=== PATIENT | male | born 1960 | race Caucasian/White ===

== ENCOUNTER 2018-08-02 21:24 | Emergency (ER) | payer BC ==
[2018-08-02 21:45] VITALS: TEMP 97.3; BMI 28.2
--- NOTE | 2018-08-02 21:54 | ED PDOC ---
Arrival/HPI - General Chief Complaint: Dizziness/Lightheaded Time Seen by Provider: 08/02/18 21:35 Historian: Patient - History of Present Illness Narrative History of Present Illness (Text): 08/02/18 21:35 58 year old male, whose past medical history includes hyperlipidemia(not on any medication), presents to the emergency department complaining of abrupt onset of dizziness and lightheadedness at home. Patient reports some palpitations. States his noted he was slurring his speech lightly, but denies any focal weakness. Patient states he is feeling better at present time, but still occasionally lightheaded. Patient denies any fever, chills, chest pain, shortness of breath, nausea, vomiting, diarrhea, urinary symptoms, back pain, neck pain, headache, or any other complaints. Symptom Onset: Sudden Symptom Course: Improving Activities at Onset: Light Context: Home Past Medical History - Provider Review Nursing Documentation Reviewed: Yes - Cardiac Hx Cardiac Disorders: Yes - Psychiatric Hx Substance Use: No Family/Social History - Physician Review Nursing Documentation Reviewed: Yes Family/Social History: No Known Family HX Smoking Status: Never Smoked Hx Alcohol Use: No Hx Substance Use: No Allergies/Home Meds Allergies/Adverse Reactions: Allergies pollen extracts Allergy (Verified 08/02/18 21:33) ANAPHYLAXIS Home Medications: Home Meds Medication Instructions Recorded Confirmed No Known Home Med 08/02/18 08/02/18 Review of Systems - Physician Review All systems were reviewed & negative as marked: Yes - Review of Systems Constitutional: absent: Fevers, Other (Chills) Respiratory: absent: SOB Cardiovascular: Palpitations. absent: Chest Pain Gastrointestinal: absent: Diarrhea, Nausea, Vomiting Genitourinary Male: absent: Dysuria, Frequency, Hematuria Musculoskeletal: absent: Back Pain, Neck Pain Neurological: Dizziness, Speech Changes. absent: Headache, Focal Weakness Physical Exam Vital Signs Reviewed: Yes Vital Signs Temp Pulse Resp BP Pulse Ox 08/02/18 21:39 97.3 F L 118 H 18 129/56 L 95 Temperature: Afebrile Blood Pressure: Hypotensive Pulse: Tachycardic Respiratory Rate: Normal Appearance: Positive for: Well-Appearing, Non-Toxic, Comfortable Pain Distress: None Mental Status: Positive for: Alert and Oriented X 3 Finger Stick Blood Glucose: 184 - Systems Exam Head: Present: Atraumatic, Normocephalic Pupils: Present: PERRL Extroacular Muscles: Present: EOMI Conjunctiva: Present: Normal Mouth: Present: Moist Mucous Membranes Neck: Present: Normal Range of Motion Respiratory/Chest: Present: Clear to Auscultation, Good Air Exchange. No: Respiratory Distress, Accessory Muscle Use Cardiovascular: Present: Regular Rate and Rhythm, Normal S1, S2. No: Murmurs Abdomen: No: Tenderness, Distention, Peritoneal Signs Back: Present: Normal Inspection Upper Extremity: Present: Normal Inspection. No: Cyanosis, Edema Lower Extremity: Present: Normal Inspection. No: Edema Neurological: Present: GCS=15, CN II-XII Intact, Speech Normal Skin: Present: Warm, Dry, Normal Color. No: Rashes Psychiatric: Present: Alert, Oriented x 3, Normal Insight, Normal Concentration Medical Decision Making ED Course and Treatment: 08/02/18 21:35 Impression: 58 year old male presents complaining of abrupt onset of dizziness of dizziness/lightheadedness and noted slight slurred speech at home. Plan: -- Labs -- CT head w.o contrast -- EKG -- Stroke team consult -- Chest X-ray -- IV Fluids -- Reassess and disposition Progress Notes: 08/02/18 21:41 Code stroke called 08/02/18 22:[address] Tinajero. [address] Head Negative. Not a candidate for TPA. Recommends CTA angio had and neck. EXAM: CT Head Without IV contrast. Electronically signed on Aug 02, 2018 10:17:32 PM EST by: Lloyd Kramer M.D. IMPRESSION: No acute intracranial abnormality. Results phoned in to Dr. Sanchez at 10:05pm 08/02/18 22:15 EKG shows Sinus Tachycardia at [address]/T changes. Interpreted by me. CXR Impression: As read by me, no acute process. 08/03/18 00:02 Case discussed with district medical examiner and Dr. Hoffman who is aware and agrees with the plan. Accepts patient into hospitalist service. - Lab Interpretations I have reviewed the lab results: Yes - RAD Interpretation Radiology Orders: 08/02/18 21:49 HEAD W/O (CODE STROKE) [CT] Stat CHEST PORTABLE [RAD] Stat Unemployment Specialist: ED Physician, Radiologist - EKG Interpretation Interpreted by ED Physician: Yes Type: 12 lead EKG - Medication Orders Current Medication Orders: Sodium Chloride (Sodium Chloride 0.9%) 1,000 mls @ 100 mls/hr IV .Q10H [facility] NIHSS Scale ([place]) Time Performed: 21:40 - How Severe is the Stoke Baseline Level of Consciousness: 0=Alert LOC to Questions: 0=Both comments correct LOC to commands: 0=Obeys both correctly Best Gaze: 0=Normal Visual: 0=No visual loss Facial: 0=Normal Motor Arm - Left: 0=No drift Motor Arm - Right: 0=No drift Motor Leg - Left: 0=No drift Motor Leg - Right: 0=No drift Limb Ataxia: 0=Absent Sensory: 0=Normal Best Language: 0=No aphasia Dysarthia: 0=Normal articulation Extinction & Inattention (Neglect): 0=Normal, no object Score: 0 Risk Level: No Stroke Risk rTPA Inclusion/Exclusion - Refusal of Treatment Patient Refused Treatment: No - Inclusion Criteria for Altepase Patient is 18 years or Older: Yes The Clinical Diagnosis of Ischemic Stroke That is Causing a Potentially Disabling Neurological Deficit: No Time of Onset is Well Established to be Less Than 270 Minute Before Treatment Would Begin: Yes Risk/Benefit Discussed With Patient/Family Member Present: Yes - Exclusion Criteria for Altepase Uncontrolled Hypertension at Time of Treatment (Systolic BP above 185 or Diastolic BP above 110 mmHg): No Active Internal Bleeding: No Known Bleeding Diathesis Including but Not Limited to: Platelets Below 100,000/mm,PTT Above 40 sec After Heparin Use, Current Use of Oral Anitcoagulant With INR Greater Than 1.7 or PT Greater Than 15 secs: No Evidence of an Intracranial Hemorrhage: No Evidence of Major Acute Infarct With Signs Greater Than 1/3 MCA Territory: No Suspicion of Subarachnoid Hemorrhage on Pretreatment Evaluation Even if CT Head Negative For Hemorrhage: No - Warning to TPA With Conditions Following Conditions Weighed Against Anticipated Benefit: Yes Condition: Rapid Improvement - Scribe Statement The provider has reviewed the documentation as recorded by the Ar Trinidad Provider Scribe Attestation: All medical record entries made by the Scribe were at my direction and personally dictated by me. I have reviewed the chart and agree that the record accurately reflects my personal performance of the history, physical exam, medical decision making, and the department course for this patient. I have also personally directed, reviewed, and agree with the discharge instructions and disposition. Disposition/Present on Arrival - Present on Arrival Any Indicators Present on Arrival: No History of DVT/PE: No History of Uncontrolled Diabetes: No Urinary Catheter: No History of Decub. Ulcer: No History Surgical Site Infection Following: None - Disposition Have Diagnosis and Disposition been Completed?: Yes Diagnosis: TIA (transient ischemic attack), Dizziness Disposition: HOSPITALIZED Disposition Time: 23:50 Patient Plan: Observation Patient Problems: Current Active Problems Problem Status Onset Dizziness Acute TIA (transient ischemic attack) Acute Condition: STABLE
[2018-08-02] MEDS ORDERED: Sodium Chloride 0.9% 1,000 ML IV SCH (22:00)
[2018-08-02] MEDS ORDERED: Iohexol 350 MG/100 ML VIAL ONE (22:14)
[2018-08-02 22:25] LABS: BASO # 0.04 K/mm3 (0.0-2.0); BASO % 0.6 % (0.0-3.0); EOS # 0.3 (0.0-0.7); EOS % 3.9 % (1.5-5.0); HEMOGLOBIN 13.2 g/dL (14.0-18.0); LYMPH # 3.1 (1.2-3.4); LYMPH % 47.7 % (22.0-35.0); MEAN CELL VOLUME 77.6 fl (80.0-105.0); MEAN CORPUSCULAR HEMOGLOBIN 25.3 pg (25.0-35.0); MEAN CORPUSCULAR HGB CONC 32.6 g/dl (31.0-37.0); MEAN PLATELET VOLUME 10.8 fl (7.0-11.0); MONO # 0.3 (0.1-0.6); MONO % 4.5 % (1.0-6.0); RBC 5.22 10^6/uL (3.5-6.1); RED CELL DISTRIBUTION WIDTH 13.7 % (11.5-14.5); WHITE BLOOD COUNT 6.4 10^3/uL (4.5-11.0)
[2018-08-02 22:29] LABS: INR 0.97; PARTIAL THROMBOPLASTIN TIME 33.8 Seconds (26.9-38.3); PROTHROMBIN TIME 10.8 SECONDS (9.4-12.5)
[2018-08-02 22:38] LABS: ALB/GLOB RATIO 1.3 (1.1-1.8); ALBUMIN 4.2 g/dL (3.0-4.8); ALT/SGPT 37 U/L (7-56); AST/SGOT 31 U/L (17-59); BLOOD UREA NITROGEN 12 mg/dL (7-21); CALCIUM 8.8 mg/dL (8.4-10.5); GFR NON-AFRICAN AMERICAN > 60; HDL CHOLESTEROL 39 mg/dL (29-60)
[2018-08-02 22:49] LABS: LDL CHOLESTEROL 158 mg/dL (0-129)
[2018-08-02 22:52] LABS: TROPONIN I < 0.01 ng/mL
[2018-08-02 22:58] LABS: T4 7.9 ug/dL (5.5-11.0)
[2018-08-02 23:12] LABS: T3 1.32 ng/mL (0.97-1.69)
[2018-08-02 23:51] VITALS: BP 100/63; PULSE 129; RESP 16; O2SAT 95
--- NOTE | 2018-08-03 01:49 | CP.PCM.HP ---
<Bobbi Eli - Last Filed: 08/03/18 01:47> History of Present Illness - History of Present Illness History of Present Illness: PGY-[address] Yasmin Marin, 58 M, with PMH hyperlipidemia(not on any medication) c/o abrupt onset of dizziness and lightheadedness at home with palpitations. His noticed slurring his speech lightly, but denies any focal weakness. Patient states he is feeling better at present time, but still occasionally lightheaded. Unknown exact time of Sx onset. Patient denies any fever, chills, chest pain, shortness of breath, nausea, vomiting, diarrhea, urinary symptoms, back pain, neck pain, headache, or any other complaints. In ED, VS 97.3, HR 129, 99/65, RR 16, 93L RA NIHSS 0. Not a TPA candidate per neurologist CBC remarkable for Hb 13.2, MCV 77.6 CMP remarkable for glu 191. Total cholesterol 253, LDL 158 A1C pending EKG showed sinus tachycardia 119, Qtc 447, no specific ST/TW changes CXR and CTA head/neck pending official read He received ASA and metoprolol in ED, on NS @100 He was admitted for hospitalist service for TIA, presyncope, sinus tachycardia. However, pt insists of leaving AMA, stating that he feels better, and wanted to leave for personal reason. He is AAO x 3, gait stable, no dizziness after ambulating unassist to bathroom. Pt instructed to return to emergency room if symptoms reappear. He was told of the risk of AMA. Pt understood what he was told, signed AMA form, and insisted leaving AMA. Present on Admission - Present on Admission Any Indicators Present on Admission: No Past Patient History - Past Social History Smoking Status: Never Smoked - CARDIAC Hx Cardiac Disorders: Yes - PSYCHIATRIC Hx Substance Use: No Meds Allergies/Adverse Reactions: Allergies Allergy/AdvReac Type Severity Reaction Status Date / Time pollen extracts Allergy ANAPHYLAXIS Verified 08/02/18 21:33 Results - Vital Signs Recent Vital Signs: Last Vital Signs Temp 97.3 F L 08/02/18 21:39 Pulse 129 H 08/02/18 23:55 Resp 16 08/02/18 23:50 BP 100/63 08/02/18 23:55 Pulse Ox 95 08/02/18 23:50 - Labs Result Diagrams: 08/02/18 22:09 08/02/18 22:09 Labs: Laboratory Results - last 24 hr 08/02/18 08/02/18 08/02/18 22:09 22:09 22:09 WBC 6.4 RBC 5.22 Hgb 13.2 L Hct 40.5 L MCV 77.6 L MCH 25.3 MCHC 32.6 RDW 13.7 Plt Count 279 MPV 10.8 Neut % (Auto) 43.3 L Lymph % (Auto) 47.7 H [place] % (Auto) 4.5 Eos % (Auto) 3.9 Baso % (Auto) 0.6 Lymph # (Auto) 3.1 [place] # (Auto) 0.3 Eos # (Auto) 0.3 Baso # (Auto) 0.04 Absolute Neuts (auto) 2.77 PT 10.8 INR 0.97 APTT 33.8 Sodium 138 Potassium 3.6 Chloride 104 Carbon Dioxide 26 Anion Gap 12 BUN 12 Creatinine 0.8 Est GFR ( Amer) > 60 Est GFR (Non-Af Amer) > 60 Random Glucose 191 H Calcium 8.8 Total Bilirubin 0.4 AST 31 ALT 37 Alkaline Phosphatase 80 Troponin I < 0.01 Total Protein 7.5 Albumin 4.2 Globulin 3.3 Albumin/Globulin Ratio 1.3 Triglycerides 282 H Cholesterol 253 H LDL Cholesterol Direct 158 H HDL Cholesterol 39 Thyroxine (T4) Total T3 TSH 3rd Generation Blood Type Blood Type Confirm Antibody Screen BBK History Checked 08/02/18 08/02/18 08/03/18 22:09 22:11 00:02 WBC RBC Hgb Hct MCV MCH MCHC RDW Plt Count MPV Neut % (Auto) Lymph % (Auto) [place] % (Auto) Eos % (Auto) Baso % (Auto) Lymph # (Auto) [place] # (Auto) Eos # (Auto) Baso # (Auto) Absolute Neuts (auto) PT INR APTT Sodium Potassium Chloride Carbon Dioxide Anion Gap BUN Creatinine Est GFR ( Amer) Est GFR (Non-Af Amer) Random Glucose Calcium Total Bilirubin AST ALT Alkaline Phosphatase Troponin I Total Protein Albumin Globulin Albumin/Globulin Ratio Triglycerides Cholesterol LDL Cholesterol Direct HDL Cholesterol Thyroxine (T4) 7.9 Total T3 1.32 TSH 3rd Generation 1.48 Blood Type B POSITIVE Blood Type Confirm B POSITIVE Antibody Screen Negative BBK History Checked No verified bt <Jennifer Hoffman - Last Filed: 08/03/18 05:28> Results - Vital Signs Recent Vital Signs: Last Vital Signs Temp 97.3 F L 08/02/18 21:39 Pulse 129 H 08/02/18 23:55 Resp 16 08/02/18 23:50 BP 100/63 08/02/18 23:55 Pulse Ox 95 08/02/18 23:50 - Labs Result Diagrams: 08/02/18 22:09 08/02/18 22:09 Labs: Laboratory Results - last 24 hr 08/02/18 08/02/18 08/02/18 22:09 22:09 22:09 WBC 6.4 RBC 5.22 Hgb 13.2 L Hct 40.5 L MCV 77.6 L MCH 25.3 MCHC 32.6 RDW 13.7 Plt Count 279 MPV 10.8 Neut % (Auto) 43.3 L Lymph % (Auto) 47.7 H [place] % (Auto) 4.5 Eos % (Auto) 3.9 Baso % (Auto) 0.6 Lymph # (Auto) 3.1 [place] # (Auto) 0.3 Eos # (Auto) 0.3 Baso # (Auto) 0.04 Absolute Neuts (auto) 2.77 PT 10.8 INR 0.97 APTT 33.8 Sodium 138 Potassium 3.6 Chloride 104 Carbon Dioxide 26 Anion Gap 12 BUN 12 Creatinine 0.8 Est GFR ( Amer) > 60 Est GFR (Non-Af Amer) > 60 Random Glucose 191 H Calcium 8.8 Total Bilirubin 0.4 AST 31 ALT 37 Alkaline Phosphatase 80 Troponin I < 0.01 Total Protein 7.5 Albumin 4.2 Globulin 3.3 Albumin/Globulin Ratio 1.3 Triglycerides 282 H Cholesterol 253 H LDL Cholesterol Direct 158 H HDL Cholesterol 39 Thyroxine (T4) Total T3 TSH 3rd Generation Blood Type Blood Type Confirm Antibody Screen BBK History Checked 08/02/18 08/02/18 08/03/18 22:09 22:11 00:02 WBC RBC Hgb Hct MCV MCH MCHC RDW Plt Count MPV Neut % (Auto) Lymph % (Auto) [place] % (Auto) Eos % (Auto) Baso % (Auto) Lymph # (Auto) [place] # (Auto) Eos # (Auto) Baso # (Auto) Absolute Neuts (auto) PT INR APTT Sodium Potassium Chloride Carbon Dioxide Anion Gap BUN Creatinine Est GFR ( Amer) Est GFR (Non-Af Amer) Random Glucose Calcium Total Bilirubin AST ALT Alkaline Phosphatase Troponin I Total Protein Albumin Globulin Albumin/Globulin Ratio Triglycerides Cholesterol LDL Cholesterol Direct HDL Cholesterol Thyroxine (T4) 7.9 Total T3 1.32 TSH 3rd Generation 1.48 Blood Type B POSITIVE Blood Type Confirm B POSITIVE Antibody Screen Negative BBK History Checked No verified bt Attending/Attestation - Attestation I have personally seen and examined this patient.: Yes I have fully participated in the care of the patient.: Yes I have reviewed all pertinent clinical information: Yes
--- NOTE | 2018-08-03 07:10 | CT ---
Date of service: 08/02/2018 PROCEDURE: CT HEAD WITHOUT CONTRAST. HISTORY: Code Stroke COMPARISON: None available. TECHNIQUE: Axial computed tomography images were obtained through the head/brain without intravenous contrast. Radiation dose: Total exam DLP = 970.19 mGy-cm. This CT exam was performed using one or more of the following dose reduction techniques: Automated exposure control, adjustment of the mA and/or kV according to patient size, and/or use of iterative reconstruction technique. FINDINGS: HEMORRHAGE: No intracranial hemorrhage. BRAIN: No mass effect or edema. No atrophy or chronic microvascular ischemic changes. VENTRICLES: Unremarkable. No hydrocephalus. CALVARIUM: Unremarkable. PARANASAL SINUSES: Unremarkable as visualized. No significant inflammatory changes. MASTOID AIR CELLS: Unremarkable as visualized. No inflammatory changes. OTHER FINDINGS: None. IMPRESSION: No evidence of acute intracranial hemorrhage intracranial collection mass effect or midline shift. Preliminary report with concordant findings was submitted by [facility].
--- NOTE | 2018-08-03 10:19 | CP.PCM.CON ---
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 Patient says that he was Past Patient History - Past Social History Smoking Status: Never Smoked - CARDIAC Hx Cardiac Disorders: Yes - PSYCHIATRIC Hx Substance Use: No Meds Allergies/Adverse Reactions: Allergies Allergy/AdvReac Type Severity Reaction Status Date / Time pollen extracts Allergy ANAPHYLAXIS Verified 08/02/18 21:33 Results - Vital Signs Recent Vital Signs: Last Vital Signs Temp 97.3 F L 08/02/18 21:39 Pulse 129 H 08/02/18 23:55 Resp 16 08/02/18 23:50 BP 100/63 08/02/18 23:55 Pulse Ox 95 08/02/18 23:50 - Labs Result Diagrams: 08/02/18 22:09 08/02/18 22:09 Labs: Laboratory Results - last 24 hr 08/02/18 08/02/18 08/02/18 22:09 22:09 22:09 WBC 6.4 RBC 5.22 Hgb 13.2 L Hct 40.5 L MCV 77.6 L MCH 25.3 MCHC 32.6 RDW 13.7 Plt Count 279 MPV 10.8 Neut % (Auto) 43.3 L Lymph % (Auto) 47.7 H [place] % (Auto) 4.5 Eos % (Auto) 3.9 Baso % (Auto) 0.6 Lymph # (Auto) 3.1 [place] # (Auto) 0.3 Eos # (Auto) 0.3 Baso # (Auto) 0.04 Absolute Neuts (auto) 2.77 PT 10.8 INR 0.97 APTT 33.8 Sodium 138 Potassium 3.6 Chloride 104 Carbon Dioxide 26 Anion Gap 12 BUN 12 Creatinine 0.8 Est GFR ( Amer) > 60 Est GFR (Non-Af Amer) > 60 Random Glucose 191 H Calcium 8.8 Total Bilirubin 0.4 AST 31 ALT 37 Alkaline Phosphatase 80 Troponin I < 0.01 Total Protein 7.5 Albumin 4.2 Globulin 3.3 Albumin/Globulin Ratio 1.3 Triglycerides 282 H Cholesterol 253 H LDL Cholesterol Direct 158 H HDL Cholesterol 39 Thyroxine (T4) Total T3 TSH 3rd Generation Blood Type Blood Type Confirm Antibody Screen BBK History Checked 01/08/02/18 08/03/18 22:09 22:11 00:02 WBC RBC Hgb Hct MCV MCH MCHC RDW Plt Count MPV Neut % (Auto) Lymph % (Auto) [place] % (Auto) Eos % (Auto) Baso % (Auto) Lymph # (Auto) [place] # (Auto) Eos # (Auto) Baso # (Auto) Absolute Neuts (auto) PT INR APTT Sodium Potassium Chloride Carbon Dioxide Anion Gap BUN Creatinine Est GFR ( Amer) Est GFR (Non-Af Amer) Random Glucose Calcium Total Bilirubin AST ALT Alkaline Phosphatase Troponin I Total Protein Albumin Globulin Albumin/Globulin Ratio Triglycerides Cholesterol LDL Cholesterol Direct HDL Cholesterol Thyroxine (T4) 7.9 Total T3 1.32 TSH 3rd Generation 1.48 Blood Type B POSITIVE Blood Type Confirm B POSITIVE Antibody Screen Negative BBK History Checked No verified bt
--- NOTE | 2018-08-03 17:59 | RAD ---
Date of service: 08/02/2018 HISTORY: Code Stroke COMPARISON: No prior. FINDINGS: LUNGS: No active pulmonary disease. PLEURA: No significant pleural effusion identified, no pneumothorax apparent. CARDIOVASCULAR: No aortic atherosclerotic calcification present. Normal cardiac size. No pulmonary vascular congestion. OSSEOUS STRUCTURES: No significant abnormalities. VISUALIZED UPPER ABDOMEN: Normal. OTHER FINDINGS: None. IMPRESSION: No evidence of acute pulmonary disease.
--- NOTE | 2018-08-03 18:54 | CT ---
Date of service: 08/02/2018 PROCEDURE: CT Angiography of the Brain. HISTORY: TIA COMPARISON: None available. TECHNIQUE: CT angiography of the intracranial arteries was performed. Coronal and sagittal maximum intensity projection reformated images were generated. Radiation dose: Total exam DLP = 552.23 mGy-cm. This CT exam was performed using one or more of the following dose reduction techniques: Automated exposure control, adjustment of the mA and/or kV according to patient size, and/or use of iterative reconstruction technique. FINDINGS: RIGHT CAROTID ARTERIES: Common Carotid Artery: Normal. Carotid Bifurcation: Normal. Internal Carotid Artery:Normal. External Carotid Artery (proximal branches): Normal. LEFT CAROTID ARTERIES: Common Carotid Artery: Normal. Carotid Bifurcation: Normal. Internal Carotid Artery:Normal. External Carotid Artery (proximal branches): Normal. VERTEBRAL ARTERIES: Right Vertebral Artery: The right vertebral artery is dominant. Left Vertebral Artery: Normal. INTERNAL CEREBRAL ARTERIES: Unremarkable. The skull base, petrous, cavernous and supraclinoid segments are bilaterally widely patent. ANTERIOR CEREBRAL ARTERIES: Unremarkable. A1 and A2 segments are widely patent. Smaller distal branches unremarkable, as visualized. MIDDLE CEREBRAL ARTERIES: Unremarkable. M1 and M2 segments are widely patent. Perisylvian branches grossly symmetric. POSTERIOR CIRCULATION: Basilar Artery: Unremarkable. Distal Vertebral Arteries: Unremarkable. Posterior Cerebral Arteries: Unremarkable. Posterior Inferior Cerebellar Arteries: Unremarkable. ANEURYSM/ VASCULAR MALFORMATIONS: None. OTHER FINDINGS: None. IMPRESSION: No CTA evidence of arterial occlusion or critical stenosis. Preliminary report was submitted by [facility].
--- NOTE | 2018-08-03 20:26 | CARD ---
APPROVED REPORT Date of service: 08/02/2018 EKG Measurement Heart [id number] <Conclusion> Sinus tachycardia Normal Electrocardiogram
== END 2018-08-03 01:30 | disposition left against medical advice (07) ==
LOC: ED 21:24 → UNDOADMOB 23:48 → ERH 23:48 → ED 08-03 01:30
DX: G45.9 Transient cerebral ischemic attack, unspecified (principal); E78.5 Hyperlipidemia, unspecified
CPT/HCPCS: 70450; 70496; 70498; 71045; 80053; 80061; 83036; 84436; 84443; 84480; 84484; 85025; 85610; 85730; 86850; 86900; 93005; 99285; J7030; Q9967